=== PATIENT | female | born 1950 | race Caucasian/White ===

== ENCOUNTER → 2020-12-21 | Day surgery (SDC) | payer MEDICARE, OTHER ==
[~2020-12-21] VITALS: Ht 160 cm; Wt 93.9 kg
[~2020-12-21] MED LIST: AREDS 2 PO; ASPIRIN EC81 MG PO; AZO BLADDER CO1 EACH PO; BIOTIN10 MG PO; DICLOFENAC TOP; FENOFIBRATE54 MG PO; NERVIVE PO; PRILOSEC20 MG PO; ZESTRIL5 MG PO; ZYRTEC10 M3 PO
[2020-12-21 06:54] LABS: HCT 40.9 % (37.0-47.0); HGB 13.9 g/dl (12.5-16.0); MCV 85.2 fL (78.0-100.0); MPV 11.2 fL (6.0-9.5); RBC 4.8 M/uL (4.20-5.40); RDW 13.1 % (11.5-14.0); WBC 5.7 K/uL (4.0-10.5)
[2020-12-21 07:18] LABS: BUN/CREAT RATIO (CALC) 14.9 RATIO; CREATININE 0.87 mg/dL (0.51-0.95); POTASSIUM 3.9 mmol/L (3.5-5.1)
== END | disposition home or self-care (01) ==
LOC: FAS 06:08
PROVIDERS: Anesthesiology
DX: G56.03 Carpal tunnel syndrome, bilateral upper limbs (principal); M65.311 Trigger thumb, right thumb; M65.312 Trigger thumb, left thumb; I10 Essential (primary) hypertension; Z79.82 Long term (current) use of aspirin; Z79.899 Other long term (current) drug therapy; Z88.2 Allergy status to sulfonamides; Z88.5 Allergy status to narcotic agent; Z88.8 Allergy status to other drugs, medicaments and biological substances
CPT/HCPCS: 36415; 80048; 93005; J0690; J1100; J1885; J2250; J2405; J2704; J2795; J3010; J7120

== ENCOUNTER → 2021-01-25 | Day surgery (SDC) | payer MEDICARE, OTHER ==
[~2021-01-25] VITALS: Ht 160 cm; Wt 93.9 kg
[2021-01-25 07:01] LABS: BUN/CREAT RATIO (CALC) 15.8 RATIO; CREATININE 0.76 mg/dL (0.51-0.95); POTASSIUM 4.5 mmol/L (3.5-5.1)
[2021-01-25 07:09] LABS: HGB 13.6 g/dl (12.5-16.0); MCH 28.6 pg (25.0-31.0); MCHC 33.2 g/dL (32.0-36.0); MCV 86.1 fL (78.0-100.0); RBC 4.76 M/uL (4.20-5.40); RDW 13.2 % (11.5-14.0); WBC 5.9 K/uL (4.0-10.5)
== END | disposition home or self-care (01) ==
LOC: FAS 06:10
PROVIDERS: Anesthesiology; Legal Medicine
DX: G56.02 Carpal tunnel syndrome, left upper limb (principal); M65.312 Trigger thumb, left thumb
CPT/HCPCS: 36415; 80048; 93005; J0690; J2250; J2405; J2704; J2795; J3010; J7120